=== PATIENT | female | born 1990 | race Caucasian/White ===

== ENCOUNTER 2024-04-10 20:30 | Emergency (ER) | payer BC ==
[~2024-04-10] VITALS: Ht 160 cm; Wt 67.6 kg
[2024-04-10 20:46] VITALS: BP 133/82; PULSE 84; RESP 18; TEMP 98; O2SAT 99
== END 2024-04-10 23:41 | disposition left against medical advice (07) ==
LOC: MED 20:30
DX: K08.89 Other specified disorders of teeth and supporting structures (principal); Z53.21 Procedure and treatment not carried out due to patient leaving prior to being seen by health care provider